=== PATIENT | female | born 1960 | race Hispanic/Latino ===

== ENCOUNTER → 2024-11-30 | Outpatient (CLI) | payer OTHER ==
[2024-11-30] MEDS: REGADENOSON 0.4 MG/5 ML PF SYG IVP ONE (11:44)
--- NOTE | 2024-12-03 15:25 | HMCSR ---
APPROVED REPORT Height: 5 ft 3in Weight: 256 lbs TEST INDICATIONS CAD The imaging protocol used to acquire images was Rest Tc-99m/stress Tc-99m 1 day Consent: The procedure was explained and understood by the patient. Informerd consent was witnessed Ligia Moser RN First, low dose rest was performed then high dose stress. RESTING DATA: The resting ekg shows: NSR, RBBB Rest SPECT myocardial perfusion imaging was performed in supine position 48 minutes following the int ravenous injection of 10.8 mCi of Tc-99 Sestamibi. Time of rest injection: 09:05: Date: 11/30/2024 Time of rest imagin:53: Date: 11/30/2024 PHARMACOLOGIC STRESS: Pharmacologic stress test was performed by injecting regadenoson 0.4 mg IV push followed by the intra venous injection of 34.9 mCi of Tc-99 Sestamibi. Time of stress injection: 10:30: Date: 11/30/2024 Time of stress imagin:52: Date: 11/30/2024 Heart Rate at time of stress injection: 80 bpm. Gated Stress SPECT was performed 82 minutes after stress injection. The images were gated to evaluate regional wall motion and calculate left ventricular ejection fracti on. STRESS DETAILS Reason for Termination: Infusion complete Stress Symptoms: Dyspnea Max HR Achieved: 100 bpm % of APMHR Achieved: 65 Max Blood Pressure: 153/61 mmHg Stress ECG: NSR, RBBB Study quality was fair. Lung uptake was Normal. Artifact: No artifact LEFT VENTRICLE The left ventricular ejection fraction was calculated to be >65%.TID = . LV PERFUSION Stress Perfusion Normal IMPRESSION Normal pharmacologic nuclear stress test. Conclusion Normal [id number] stress test with an LVEF >65%. No ischemia observed.
== END | disposition home or self-care (01) ==
LOC: SHCH 08:49 → EDUNIT# 08:50
PROVIDERS: ATTEND Student in an Organized Health Care Education/Training Program
DX: I25.10 Atherosclerotic heart disease of native coronary artery without angina pectoris (principal); I45.10 Unspecified right bundle-branch block
CPT/HCPCS: 78452; 93017; J2785; A9500 ×2

== ENCOUNTER 2025-01-15 05:44 | Day surgery (SDC) | payer OTHER ==
[2025-01-13 12:05] VITALS: BP 149/80; PULSE 100; RESP 18; TEMP 98.1
[2025-01-13 12:10] LABS: CREATININE 2.1 mg/dL (0.5-1.0); POTASSIUM 4.6 mmol/L (3.5-5.1)
[2025-01-13 12:12] LABS: INR 0.97 (0.85-1.15); PROTHROMBIN TIME 10.3 SEC (9.6-11.6)
[2025-01-13 12:13] LABS: PARTIAL THROMBOPLASTIN TIME 27.3 SEC (26.3-35.5)
[~2025-01-15] VITALS: Ht 160 cm; Wt 116.0 kg
[2025-01-15] VITALS (20 sets, daily range): BP systolic 127–158; BP diastolic 60–85; PULSE 85–101; RESP 13–19; TEMP 97–97.5
[2025-01-15] MEDS: BUPIvacaine/PF 0.5% 30ML VIAL ONE
[~2025-01-15 05:44] MED LIST: AMLO-257 PO; FOLI0.8T43 PO; LEVO125C5 PO; ROSU40TA88 PO; SODI650T PO
[2025-01-15] MEDS: 0.9%NACL 1000ML 1,000 ML IV ONE (06:35)
[2025-01-15] MEDS: ceFAZolin SODIUM 2 GM VIAL ONE (06:36)
[2025-01-15] MEDS ORDERED: LIDOCAINE PF 100MG/5ML (2%) SYRINGE 5ML ONE (07:00)
[2025-01-15] MEDS ORDERED: ondanSETRON 4MG INJ ONE (07:00)
[2025-01-15] MEDS ORDERED: dexaMETHasone SOD PHOSPHATE 10MG/ML 1ML VIAL ONE (07:01)
[2025-01-15] MEDS ORDERED: GLYCOPYRROLATE 0.2 MG/ML 5 ML VIAL ONE (07:01)
[2025-01-15] MEDS ORDERED: proPOFol 10 MG/ML 20ML VIAL IV ONE (07:01)
[2025-01-15] MEDS ORDERED: FENTanyl CITRate PF 50 MCG/1 ML 2ML VIAL ONE (07:02)
[2025-01-15] MEDS ORDERED: rocuRONium bROMide 10MG/1ML 5ML VL ONE (07:02)
[2025-01-15] MEDS ORDERED: NEOSTIGMINE METHYLSULFATE 1MG/ML IV ONE (07:02)
[2025-01-15] MEDS ORDERED: phenylEPHRINE HCL 10 MG/ML 1ML VIAL IV ONE (07:02)
[2025-01-15] MEDS ORDERED: MIDAZOLAM HCL 1 MG/ML 2ML VIAL ONE (07:02)
[2025-01-15] MEDS ORDERED: HYDR-4060 PO (07:47)
[2025-01-15] MEDS: HYDROcodone/APAP 5/325 1 TAB TABLET PO ONE (09:51)
--- NOTE | 2025-01-15 09:51 | HMCIMG ---
INTRAOPERATIVE FLUOROSCOPIC GUIDANCE UP TO 1 HOUR. IMPRESSION: Intraoperative fluoroscopic guidance was provided for ORIF right distal lateral femur biopsy/surgery, which was performed by Dr. Singh. Total fluoroscopy time was 4 seconds, and administered dose, 0.39 mGy. A total of 3 spot images obtained. Please refer to the orthopedic procedure note for further details.
[2025-01-15] MEDS: HYDROcodone/APAP 5/325 1 TAB TABLET ONE (09:53)
[2025-01-15] MEDS ORDERED: IpraTROPium/alBUTERol SULFATE 3 ML SOLUTION IH ONE (10:00)
--- NOTE | 2025-01-15 10:10 | NUR ---
DRESSING: BILLY WRAP DRESSING TO RIGHT LEG DRY/INTACT, ICE BAG APPLIED PER ORDERS.
--- NOTE | 2025-01-15 11:45 | NUR ---
DRESSING: BILLY BANDAGE TO RT LEG REMAINED DRY/INTACT WITH ICE BAG IN PLACE
--- NOTE | 2025-01-15 12:50 | OP ---
Operative Note: DATE OF PROCEDURE: 01/15/25 SURGEON: MARY CHRIS MD COAGULANT DIPPER: Juan Roberts ANESTHESIA: General ANESTHESIOLOGIST/AUTO HEATER MECHANIC: Greg Law PREOPERATIVE DIAGNOSIS: Right distal femur bone lesion POSTOPERATIVE DIAGNOSIS: Right distal femur bone lesion PROCEDURE: Biopsy of right distal femoral bone lesion ESTIMATED BLOOD LOSS: 10 cc INDICATIONS: 64-year-old female with right knee osteoarthritis who underwent imaging of the right knee. Incidentally seen were lesions within the right femur. She had an MRI of the entire right femur showing lesions throughout the bone with a large lesion in the distal region. After discussion of the risks, benefits, and alternatives, the patient voluntarily agreed to undergo the aforementioned procedure. DESCRIPTION OF PROCEDURE: Patient was properly identified in the preoperative holding area. Surgical site marking was verified and surgery consent reviewed. The patient was then taken to the operating room and placed in supine position on the OR table. After induction of general anesthesia, preoperative antibiotics were given, all bony prominences were well-padded, and a well padded tourniquet was applied but not inflated at this time. The right lower extremity was then prepped and draped in usual sterile fashion. Surgical timeout was done verifying correct surgery, side, site, and location to be performed. We then began the procedure by exsanguinating the leg using Esmarch and inflating our tourniquet to 300 mm Hg. We then localized to the lesion of the distal femoral under fluoroscopy and marked this region. A 10 blade was then used to make an proximally 6 cm long incision in the skin along the lateral aspect of the femur. Hemostasis was performed using Bovie electrocautery. We then dissected bluntly through the subcutaneous fat and placed our self- retaining retractors. We then incised the IT band in line with the skin incision and split the vastus lateralis muscle placing our Hohmann retractors deep to the bone. Having exposed the lateral cortex of the distal femur we then used a 2.0 mm K-wire to perforate the cortex in three different regions. We then used the quarter-inch osteotome to connect these three holes and excise the small piece cortex in this region. We then began to use a curette to obtain some of the bone matrix tissue and put this on our specimen cup. We ended up widening the osteotomy to allow for further tissue to be obtained as there was very little specimen. We then used a suction trap to aspirate from the bone marrow a sample to send for cytology. Once we had obtained adequate sample, we applied bone wax over the the. The IT band was closed using a #1 Vicryl. 2-0 Vicryl was used in the subcutaneous tissue. 0.5% Marcaine was injected as local in the perioperative tissues. A running subcuticular 3-0 Monocryl was placed for closure of the skin with Dermabond applied over this. Sterile soft dressing was applied. Aspirate and bone marrow were sent pathology. The tourniquet was then deflated. The patient was awakened from anesthesia and taken to the recovery room in stable condition. MARY CHRIS MD Jan 15, 2025 12:50
== END 2025-01-15 11:45 | disposition home or self-care (01) ==
LOC: DAH 05:44
PROVIDERS: ATTEND Student in an Organized Health Care Education/Training Program
DX: M89.9 Disorder of bone, unspecified (principal); M89.8X5 Other specified disorders of bone, thigh; M79.604 Pain in right leg; I10 Essential (primary) hypertension; E11.9 Type 2 diabetes mellitus without complications; E03.9 Hypothyroidism, unspecified; E78.5 Hyperlipidemia, unspecified; Z79.890 Hormone replacement therapy; Z82.3 Family history of stroke; Z79.899 Other long term (current) drug therapy; Z98.890 Other specified postprocedural states
CPT/HCPCS: 27355; 38220; 80048; 85610; 85730; 36415; 82948 ×2; 88184; 88185; 88189; 73552; 97161; 97116; 94640; A4663; A4606; C1713; J3010; J1100; J7030; J3490 ×2; J2003; J2250; J2704; J2405; J2710; J0665; J2371; J0690; A4649; A6255; A5120; A4215; A4223; A4222; A4221; A6450

== ENCOUNTER 2025-03-15 06:43 | Observation (INO) | payer OTHER ==
[2025-03-09 12:26] LABS: BASOPHILS # (AUTO) 0.01 K/uL (0.00-0.20); BASOPHILS % (AUTO) 0.1 % (0.0-5.0); EOSINOPHILS # (AUTO) 0.01 K/uL (0.00-0.70); EOSINOPHILS % (AUTO) 0.1 % (0.0-8.0); HEMATOCRIT 39.1 % (36-48); IMMATURE GRANULOCYTE ABSOLUTE 0.05 K/uL (0-1); LYMPHOCYTES # (AUTO) 2.5 K/uL (1.0-4.8); LYMPHOCYTES % (AUTO) 28.1 % (21.0-51.0); MEAN CORPUSCULAR HEMOGLOBIN 28.8 pg (27.0-33.0); MEAN CORPUSCULAR HGB CONC 31.2 g/dL (32.0-36.0); MEAN CORPUSCULAR VOLUME 92.4 fL (79-99); MONOCYTES # (AUTO) 0.7 K/uL (0.1-1.0); MONOCYTES % (AUTO) 8.4 % (3.0-13.0); NEUTROPHILS # (AUTO) 5.5 K/uL (1.8-7.7); NEUTROPHILS % (AUTO) 62.7 % (40.0-77.0); PLATELET COUNT (AUTO) 354 K/uL (130-400); RED BLOOD CELL COUNT(AUTO) 4.23 MIL/uL (4.00-5.50); RED CELL DISTRIBUTION WIDTH 13.5 % (11.0-15.5); WHITE BLOOD COUNT (AUTO) 8.8 K/uL (4.8-10.8)
[2025-03-09 12:36] LABS: INR 0.96 (0.85-1.15); PROTHROMBIN TIME 10.2 SEC (9.6-11.6)
[2025-03-09 12:38] LABS: PARTIAL THROMBOPLASTIN TIME 25.1 SEC (26.3-35.5)
--- NOTE | 2025-03-09 12:40 | NUR ---
PREOP MAC RT INSTRUCTED ON INCENTIVE SPIROMETRY.
[2025-03-09 12:49] LABS: ALBUMIN 4.1 g/dL (3.5-5.0); CREATININE 2.4 mg/dL (0.5-1.0)
[2025-03-09 13:01] VITALS: BP 185/80; PULSE 89; RESP 18; TEMP 98.6
[~2025-03-15] VITALS: Ht 160 cm; Wt 116.6 kg
[2025-03-15] VITALS (30 sets, daily range): BP systolic 101–154; BP diastolic 40–85; PULSE 61–110; RESP 13–21; TEMP 97.3–98.6; O2SAT 93–95
[~2025-03-15 06:43] MED LIST changes: +CETI10TA57 PO
[2025-03-15] MEDS ORDERED: LIDOCAINE PF 100MG/5ML (2%) SYRINGE 5ML ONE (07:14)
[2025-03-15] MEDS ORDERED: rocuRONium bROMide 10MG/1ML 5ML VL ONE (07:15)
[2025-03-15] MEDS ORDERED: GLYCOPYRROLATE 0.2 MG/ML 5 ML VIAL ONE (07:15)
[2025-03-15] MEDS ORDERED: proPOFol 10 MG/ML 20ML VIAL IV ONE (07:15)
[2025-03-15] MEDS ORDERED: SUCCINYLCHOLINE CHLORIDE 20 MG/ML 10 ML VIAL ONE (07:15)
[2025-03-15] MEDS ORDERED: ondanSETRON 4MG INJ ONE (07:15)
[2025-03-15] MEDS ORDERED: dexaMETHasone SOD PHOSPHATE 10MG/ML 1ML VIAL ONE (07:15)
[2025-03-15] MEDS ORDERED: NEOSTIGMINE METHYLSULFATE 1MG/ML IV ONE (07:15)
[2025-03-15] MEDS ORDERED: FENTanyl CITRate PF 50 MCG/1 ML 2ML VIAL ONE ×3 (07:16→09:43)
[2025-03-15] MEDS ORDERED: MIDAZOLAM HCL 1 MG/ML 2ML VIAL ONE (07:16)
[2025-03-15] MEDS ORDERED: ROPivacaine 0.5% 5MG/ML 30ML ONE (07:20)
[2025-03-15] MEDS ORDERED: LISI2.5T13 PO (07:48)
[2025-03-15] MEDS ORDERED: ketaMINE 50MG/ML SYRINGE 50 MG/ML DISP.SYRIN ONE (07:50)
[2025-03-15] MEDS ORDERED: ALBUMIN (HUMAN) 5% 250 ML IV ONE (07:50)
[2025-03-15] MEDS ORDERED: PoTASSium chloRIDE 20MEQ/100ML 100 ML IV PRN (08:00)
[2025-03-15] MEDS ORDERED: FERROUS FUMARATE 324 MG TABLET PO PRN (08:00)
[2025-03-15] MEDS ORDERED: HYDROcodone/APAP 5/325 1 TAB TABLET PO PRN (08:00)
[2025-03-15] MEDS ORDERED: DiphenhydrAMINE HCL 50 MG/ML VIAL IVP PRN (08:00)
[2025-03-15] MEDS ORDERED: PoTASSium chloRIDE 20MEQ ER 20 MEQ ERTAB PO PRN (08:00)
[2025-03-15] MEDS ORDERED: PoTASSium chl 10% ELIXIR 20MEQ 20 MEQ/15 ML UDCUP PO PRN (08:00)
[2025-03-15] MEDS ORDERED: ondanSETRON 4MG INJ IVP PRN (08:00)
[2025-03-15] MEDS ORDERED: CALCIUM CARB 500MG PO PRN (08:00)
[2025-03-15] MEDS: TRANEXAMIC ACID 1000MG/10ML ONE (08:15)
[2025-03-15] MEDS: ceFAZolin SODIUM 2 GM VIAL ONE (08:17)
--- NOTE | 2025-03-15 09:20 | DS ---
Discharge Summary Hospital Course Summary: The patient was admitted to the hospital postoperatively on 03/15/2025 after undergoing right total knee arthroplasty. They did well with routine postoperative pain control. They worked well with physical therapy. They developed some acute blood loss anemia but remained asymptomatic. The hospital course was otherwise uncomplicated. They were subsequently able to be discharged on postoperative day [] once discharge arrangements were made with home health physical therapy. Customer Field Representative(s): None Procedure(s): right total knee arthroplasty, 03/15/2025 Assessment/Plan: ASSESSMENT: Status post right total knee arthroplasty PLAN: See discharge instructions Discharge Instructions: Begin working with home health physical therapy. Dressing may be removed 03/17/2025 and left open to air. Showers ok allowing soap and water to run over the wound. Pat dry. Do not submerge wound in tub/pool. Do not apply ointments. Do not apply Betadine. Do not apply peroxide. Ice packs to decrease pain/swelling. Prescriptions have been sent to the pharmacy: *[place] 5/325mg 1-2 tab every 6 hours as needed for severe pain. (please call for refills) Cyclobenzaprine 5mg 1 tab every 8 hours as needed for muscle spasm pain. Gabapentin 100mg 1 tab every 8 hours (may discontinue if drowsy). Colace 100mg 1 tab orally twice a day as needed for constipation. Aspirin 325mg twice a day for 30 days to prevent blood clots. Call for a follow-up appointment in 2-3 weeks at [facility]. Home Medications: Reported Medications Lisinopril (Lisinopril) 2.5 Mg Tablet, 1 TAB PO DAILY for 30 Days, #30 TAB 0 Refills 03/15/25 Cetirizine HCl (Cetirizine HCl) 10 Mg Tablet, 10 MG PO DAILY, TAB 03/09/25 Rosuvastatin Calcium (Rosuvastatin Calcium) 40 Mg Tablet, 40 MG PO HS, TAB 01/13/25 Levothyroxine Sodium (Levothyroxine) 125 Mcg Capsule, 125 MCG PO AM, CAP 01/13/25 Folic Acid/Vit Bcomp,C (Renal-Giselle Tablet) 0.8 Mg Tablet, 0.8 MG PO HS, TAB 01/13/25 Sodium Bicarbonate (Sodium Bicarbonate) 650 Mg Tablet, 650 MG PO BID, TAB 01/13/25 Amlodipine Besylate (Amlodipine Besylate) 5 Mg Tablet, 5 MG PO AM, TAB 01/13/25 Discontinued Scripts Hydrocodone/Acetaminophen (Hydrocodon-Acetaminophen 5-325) 5 Mg-325 Mg Tablet, 1 EACH PO Q6HPRN PRN for post operative pain for 7 Days, #28 TAB 0 Refills Prov:MARY CHRIS MD 01/15/25 MARY CHRIS MD March 15, 2025 09:20
[2025-03-15] MEDS: ketOROlac 30MG VIAL (30MG/ML) ONE (10:12)
[2025-03-15] MEDS: ROPivacaine 0.5% 5MG/ML 30ML ONE (10:12)
[2025-03-15] MEDS: TRANEXAMIC ACID 1000MG/10ML IV ONE ×2 (10:46)
--- NOTE | 2025-03-15 10:53 | OP ---
Operative Note: DATE OF PROCEDURE: 03/15/25 PREOPERATIVE DIAGNOSIS: Right knee osteoarthritis. POSTOPERATIVE DIAGNOSIS: Right knee osteoarthritis. PROCEDURE PERFORMED: Right knee total knee arthroplasty. SURGEON: Mel Singh MD ICE BAG ASSEMBLER: Ania Rascon. ANESTHESIA: General with adductor canal block. ANESTHESIA: DIE SIZER Jordin Platt. ESTIMATED BLOOD LOSS: 50cc. COMPLICATIONS: None. DRAINS: None. SPECIMENS REMOVED: resected bone. Not sent to pathology. IMPLANTS: [employer] II BCS size 6 Oxinium femur, size 4 tibial base plate, 32 mm 7.5 patella, 9 mm polyethylene STATEMENT OF MEDICAL NECESSITY: The patient is a 64-year-old female who suffers from right knee osteoarthritis failing conservative management. After discussion of the risks, benefits, and alternatives with the patient, they voluntarily agreed to undergo the aforementioned procedure. DESCRIPTION OF PROCEDURE: Patient was properly identified in the preoperative holding area. Surgical site marking was verified and surgery consent reviewed. The patient was then taken to the operating room and placed in supine position on the OR table. After induction of general anesthesia, preoperative antibiotics were given, all bony prominences were well-padded, and a well padded tourniquet was applied but not inflated at this time. The right lower extremity was then prepped and draped in usual sterile fashion. Surgical time out was done verifying correct surgery, side, site, and location to be performed. We then began the procedure by exsanguinating the limb using an Esmarch and inflating the tourniquet to 350 mmHg. At this point, we made an anterior midline incision using a 10 blade, coming down sharply the level of the fascia. Skin flaps were elevated medially and laterally. We then obtained a clean 10 blade and performed a standard medial parapatellar arthrotomy. We excised the infrapatellar fat pad. We performed our soft tissue releases off of the tibia. We transected the ACL and removed the anterior portion of the medial & lateral meniscus. We then brought the knee into hyperflexion with the patella everted. We used our entry reamer to enter the femoral canal. We then placed our intramedullary cutting guide for our distal femoral cutting block. We then performed our distal femoral osteotomy ensuring appropriate rotation and removed the bony wafer. We then removed these pins and block and then used jig 2 to size the distal femur with the after mentioned size found. We then placed our 5-in-1 cutting block in 4 degrees of external rotation and took our 5 cuts ensuring to protect the patellar tendon and the collateral ligaments. We then removed the cutting block and our bony fragments using a curved osteotome. We then placed our PCL retractor subluxating the tibia anteriorly. Using an extra medullary tibial cutting guide, we hung the block for our proximal tibial cut taking 2 mm off the more diseased portion. Prior to pinning this block in place, we ensured appropriate varus/valgus alignment and posterior slope similar to the [place] slope of the patient's knee. We then performed our proximal tibial osteotomy and removed the bony wafer using Bovie electrocautery to release any remaining soft tissue attachments. We then used our tibial sizing paddle and checked once more for varus & valgus alignment and found this to be appropriate. At this point, we pinned our tibial paddle in place. We then removed the PCL retractor and subluxated the tibia posteriorly while we placed our femoral trial component. We then finished preparing the notch with the reamer and box chisel. The notch portion of the trial femoral component was then placed. A posterior stabilized polyethylene, size 9 trial was placed. The knee was then taken through range of motion and found to have stable full range of motion. We then placed a bump under the ankle and everted the patella to perform our freehand cut of the undersurface the patella. We then sized our patella and reamed to the lug holes for this. We placed our trial patellar component and begin to take the knee through range of motion. The patella had significant lateral tracking so we performed a lateral release. Rotation of the tibial and femoral components appeared correct. The patella continued to slow s ome lateral pull so we elected to use the 7.5 mm thickness. At this point we began removing our trial components and punched the tibial keel prior to removing our tibial trial component. Final components were opened and cement was mixed on the back table while we injected local cocktail in the posterior capsule. We then thoroughly irrigated out the bone and dried the bony surfaces. We cemented our tibial component in place ensuring to remove excess cement and placed our trial polyethylene. We then cemented our femoral component in place once again taking time to ensure excess cement was removed leg was brought into full extension to help squeeze the excess cement from around the femoral component. We then brought the knee back in a flexion to remove this portion of the cement at this point we placed the ankle in a bump thoroughly irrigated off the patellar component and cemented our patellar component in standard fashion again removing excess cement. While we waited for the cement to cure, we thoroughly irrigated out the wound with normal saline. Once our cement had cured, we took the knee through a range of motion and found full and stable range of motion. We then elected to use the size 9 polyethylene and removed our trial polyethylene. We impacted our final polyethylene component in place in standard fashion and took the knee through a range of motion check once more. This was satisfactory so we began to repair the arthrotomy using #1 Vicryl in interrupted [id number] fashion. Subcutaneous tissue was repaired using 2-0 Vicryl. Running subcuticular 3-0 Monocryl stitch with Dermabond placed over this for the skin. We then applied a foam barrier dressing and a pressure dressing consisting of 4 x 4's fluffs and an Nils wrap. The tourniquet was then deflated. Patient was awakened from anesthesia, and they were taken to the recovery room in stable condition. MEL SINGH MD March 15, 2025 10:53
[2025-03-15] MEDS: INSULIN humuLIN R 100 UNIT/ML 3ML SQ SCH (11:30)
[2025-03-15] MEDS: FENTanyl CITRate PF 50 MCG/1 ML 2ML VIAL ONE (11:38)
--- NOTE | 2025-03-15 11:46 | HMCIMG ---
Exam Type: KNEE/PATELLA 1-2VWS RT Clinical Information: S/P RT TKA SURGERY Comparison: None Findings: Routine views of the knee are without evidence of fracture, dislocation, arthritic, or inflammatory change. There is status post knee replacement with adequate visualization and alignment of bony and hardware elements. No complications are seen. There are vascular calcifications. The joint space is well maintained and there is no effusion. IMPRESSION: Status post knee replacement.
[2025-03-15] MEDS: IpraTROPium/alBUTERol SULFATE 3 ML SOLUTION IH ONE (12:02)
[2025-03-15] MEDS: 0.9%NACL 1000ML 1,000 ML IV ONE (13:00)
[2025-03-15] MEDS: FAMOTIDINE 20MG VIAL IV ONE (13:00)
[2025-03-15] MEDS: acetaMINOPHEN 100 ML ONE (13:00)
[2025-03-15] MEDS: GABApentin 100 MG CAPSULE PO SCH (13:01)
[2025-03-15] MEDS: polyETHYLene GLYCol 3350 17 GM POWD.PACK PO SCH (13:01)
[2025-03-15] MEDS: 0.9%NACL 1000ML 1,000 ML IV SCH (13:01)
[2025-03-15] MEDS: doCUSate SODIUM 100 MG CAP PO SCH (13:01)
[2025-03-15] MEDS: HYDROcodone/APAP 5/325 1 TAB TABLET PO PRN (13:38)
[2025-03-15] MEDS: ceFAZolin SODIUM 2 GM VIAL IVP SCH (13:39)
--- NOTE | 2025-03-15 14:30 | NUR ---
Order received and patient seen. Patient reports she did not use an AD prior to surgery however was limited in her activity. Plan is for DC home with spouse. Patient does not have a walker, will need one at DC. She denies and step to get into her home. PT team to follow. Addendum: 03/15/25 at 1520 by SUSHILA RICHARD PT Amended: Links added.
[2025-03-15] MEDS: CYCLOBENZAPRINE HCL 10 MG TABLET PO PRN (15:30)
--- NOTE | 2025-03-15 17:31 | NUR ---
ORTHO COORDINATOR: TEACHING REGARDING DVT AND PNEUMONIA PREVENTION, PAIN EXPECTATIONS AND PAIN MANAGEMENT. PATIENT IN BED, B SCD'S IN PLACE AND FUNCTIONING. INCENTIVE SPIROMETER ON BEDSIDE TABLE. PATIENT RETURN DEMONSTRATED USE OF INCENTIVE SPIROMETER AND FOOT FLEXION/EXTENSION EXERCISES. RATIONAL PROVIDED. PAIN MANAGEMENT DISCUSSED, REMINDED PATIENT PAIN MEDICATIONS MUST BE REQUESTED. ENCOURAGED HER TO SET AN ALARM FOR EVERY FOUR HOURS AND PERFORM A SELF ASSESSMENT. NUMERIC PAIN SCALE REVIEWED, PATIENT INSTRUCTED TO THEN REQUEST MEDICATION BASED ON PAIN SCORE. PATIENT VERBALIZED UNDERSTANDING TO INSTRUCTIONS. EXPECTATIONS SET FOR PATIENT TO SHOWER TOMORROW. PATIENT VERBALIZED UNDERSTANDING. NO ADDITIONAL QUESTIONS/CONCERNS AT THIS TIME.
[2025-03-15] MEDS: traMADol HCL 50 MG TABLET PO PRN (20:15)
[2025-03-15] MEDS: INSULIN humuLIN R 100 UNIT/ML 3ML SQ ONE (22:02)
[2025-03-16] VITALS (7 sets, daily range): BP systolic 93–136; BP diastolic 54–79; PULSE 67–104; RESP 18–20; TEMP 98–98.7; O2SAT 97
--- NOTE | 2025-03-16 02:27 | NUR ---
nurse note patient alert and oriented times 4. plan of care discussed with her and she verbalized understanding. patient calls for assistance to the restroom. She is drinking plenty of fluids and is saline locked now. She has slept about 5 hours tonight intermittently. She complains of knee discomfort only when walking. call light within reach, bed alarm on, 2 side rails up. will continue to monitor patient.
[2025-03-16] MEDS: HYDROcodone/APAP 5/325 1 TAB TABLET PO PRN (04:20)
[2025-03-16 04:33] LABS: HEMATOCRIT 31.4 % (36-48); MEAN CORPUSCULAR HEMOGLOBIN 28.8 pg (27.0-33.0); MEAN CORPUSCULAR HGB CONC 31.2 g/dL (32.0-36.0); MEAN CORPUSCULAR VOLUME 92.4 fL (79-99); RED BLOOD CELL COUNT(AUTO) 3.4 MIL/uL (4.00-5.50); RED CELL DISTRIBUTION WIDTH 13.2 % (11.0-15.5); WHITE BLOOD COUNT (AUTO) 15.6 K/uL (4.8-10.8)
[2025-03-16 04:55] LABS: CREATININE 2.9 mg/dL (0.5-1.0); POTASSIUM 4.9 mmol/L (3.5-5.1)
[2025-03-16] MEDS: levoTHYROxine 125 MCG TABLET PO SCH (05:55)
[2025-03-16] MEDS: levoTHYROxine 125 MCG TABLET ONE (05:55)
--- NOTE | 2025-03-16 08:10 | PN ---
Ortho postop day one. This morning patient is also already out of bed resting in a chair she is already wearing her street clothes. Reporting moderate pain. Vital signs have remained stable. She is afebrile. Laboratory results reviewed. Noted to have a drop in hemoglobin and hematocrit as expected after total knee arthroplasty. Patient is currently asymptomatic and we will continue to observe and address per protocol as necessary. The Nils bandage his already been removed from the operative site and the dressing is intact. She has ice currently present. She has been alternating extension and flexion with a footstool while seated. Gastrocnemius soft nontender. Negative Homans. Operative findings discussed with the patient. She is voiding but not had any bowel movement and is not passing gas yet. Reinforce incentive spirometry. She ambulated within the confines of her room about 10 ft and is pending further physical therapy this morning. Anticipated discharge goal for patient is home health/PT. Assessment: Status post right total knee arthroplasty. Acute postoperative blood loss anemia Plan: Continue with Dr. Singh TKA protocol and discharge planning Acute postoperative blood loss anemia addressed with the protocol as necessary Vitals/Labs Vital Signs Date Time Temp Pulse Resp B/P (MAP) Pulse Ox O2 Delivery O2 Flow Rate FiO2 03/16/25 07:15 98.1 67 20 93/54 97 Room Air 21 03/15/25 19:15 0 Laboratory Tests 03/16/25 04:14 Medications Current Medications Cefazolin Sodium 2 gm STK-MED ONCE .ROUTE Last administered on 03/15/25at 08:17; Start 03/15/25 at 07:14; Stop 03/15/25 at 07:14; Status DC Sodium Chloride 1,000 ml @ As Directed STK-MED ONCE IV; Start 03/15/25 at 07:14; Stop 03/15/25 at 07:14; Status DC Lidocaine HCl 100 mg STK-MED ONCE .ROUTE; Start 03/15/25 at 07:14; Stop 03/15/25 at 07:15; Status DC Succinylcholine Chloride 200 mg STK-MED ONCE .ROUTE; Start 03/15/25 at 07:15; Stop 03/15/25 at 07:15; Status DC Dexamethasone Sodium Phosphate 10 mg STK-MED ONCE .ROUTE; Start 03/15/25 at 07:15; Stop 03/15/25 at 07:15; Status DC Glycopyrrolate 1 mg STK-MED ONCE .ROUTE; Start 03/15/25 at 07:15; Stop 03/15/25 at 07:15; Status DC Propofol 200 mg STK-MED ONCE IV; Start 03/15/25 at 07:15; Stop 03/15/25 at 07:15; Status DC Neostigmine Methylsulfate 10 mg STK-MED ONCE IV; Start 03/15/25 at 07:15; Stop 03/15/25 at 07:15; Status DC Ondansetron HCl 4 mg STK-MED ONCE .ROUTE; Start 03/15/25 at 07:15; Stop 03/15/25 at 07:15; Status DC Rocuronium [place] 50 mg STK-MED ONCE .ROUTE; Start 03/15/25 at 07:15; Stop 03/15/25 at 07:15; Status DC Fentanyl Citrate 100 mcg STK-MED ONCE .ROUTE; Start 03/15/25 at 07:16; Stop 03/15/25 at 07:16; Status DC Midazolam HCl 2 mg STK-MED ONCE .ROUTE; Start 03/15/25 at 07:16; Stop 03/15/25 at 07:16; Status DC Ropivacaine 150 mg STK-MED ONCE .ROUTE; Start 03/15/25 at 07:20; Stop 03/15/25 at 07:20; Status DC Acetaminophen 100 ml @ As Directed STK-MED ONCE .ROUTE; Start 03/15/25 at 07:42; Stop 03/15/25 at 07:43; Status DC Famotidine 20 mg STK-MED ONCE IV; Start 03/15/25 at 07:43; Stop 03/15/25 at 07:43; Status DC Sodium Chloride 1,000 ml @ 100 mls/hr Q10H IV Last administered on 03/15/25at 13:40; Start 03/15/25 at 08:00; Stop 03/16/25 at 01:22; Status DC Polyethylene Glycol 17 gm DAILY PO; Start 03/15/25 at 09:00; Stop 04/14/25 at 08:59 Bisacodyl 10 mg DAILY PRN RC; Start 03/18/25 at 08:00; Stop 04/17/25 at 07:59 Ferrous Fumarate 324 mg DAILY PRN PO; Start 03/15/25 at 08:00; Stop 04/14/25 at 07:59 Ondansetron HCl 4 mg Q6H PRN IVP; Start 03/15/25 at 08:00; Stop 04/14/25 at 07:59 Calcium Carbonate 500 mg Q12H PRN PO; Start 03/15/25 at 08:00; Stop 04/14/25 at 07:59 Diphenhydramine HCl 25 mg Q6H PRN IVP; Start 03/15/25 at 08:00; Stop 04/14/25 at 07:59 Insulin Human Regular INSULIN SLIDING SCAL... ACHS SQ; Start 03/15/25 at 11:30; Stop 04/14/25 at 11:29 Cefazolin Sodium 2 gm Q8H IVP Last administered on 03/15/25at 20:16; Start 03/15/25 at 13:00; Stop 03/15/25 at 21:01; Status DC Cyclobenzaprine HCl 5 mg Q8H PRN PO Last administered on 03/15/25at 15:30; Start 03/15/25 at 08:00; Stop 04/14/25 at 07:59 Gabapentin 100 mg TID PO Last administered on 03/15/25at 20:15; Start 03/15/25 at 09:00; Stop 04/14/25 at 08:59 Aspirin 325 mg DAILY PO; Start 03/16/25 at 09:00; Stop 04/15/25 at 08:59 Docusate Sodium 100 mg BID PO Last administered on 03/15/25at 20:15; Start 03/15/25 at 09:00; Stop 04/14/25 at 08:59 Potassium Chloride 100 ml @ 100 mls/hr AD PRN IV; Start 03/15/25 at 08:00; Stop 04/14/25 at 07:59 Potassium Chloride 20 meq AD PRN PO; Start 03/15/25 at 08:00; Stop 04/14/25 at 07:59 Potassium Chloride 20 meq AD PRN PO; Start 03/15/25 at 08:00; Stop 04/14/25 at 07:59 Tramadol HCl 50 mg Q6H PRN PO Last administered on 03/15/25at 20:15; Start 03/15/25 at 08:00; Stop 03/20/25 at 07:59 Acetaminophen/ Hydrocodone Bitart Q4H PRN PO; Start 03/15/25 at 08:00; Stop 03/15/25 at 07:51; Status DC Ketamine HCl 50 mg STK-MED ONCE .ROUTE; Start 03/15/25 at 07:50; Stop 03/15/25 at 07:50; Status DC Albumin Human 250 ml @ As Directed STK-MED ONCE IV; Start 03/15/25 at 07:50; Stop 03/15/25 at 07:50; Status DC Acetaminophen/ Hydrocodone Bitart 1 tab Q4H PRN PO Last administered on 03/15/25at 13:38; Start 03/15/25 at 08:00; Stop 03/20/25 at 07:59 Acetaminophen/ Hydrocodone Bitart 2 tab Q4H PRN PO Last administered on 03/16/25at 04:20; Start 03/15/25 at 08:00; Stop 03/20/25 at 07:59 Tranexamic Acid 1,000 mg STK-MED ONCE .ROUTE Last administered on 03/15/25at 08:15; Start 03/15/25 at 08:32; Stop 03/15/25 at 08:32; Status DC Ketorolac Tromethamine 30 mg STK-MED ONCE .ROUTE Last administered on 03/15/25at 10:12; Start 03/15/25 at 08:32; Stop 03/15/25 at 08:32; Status DC Ropivacaine 150 mg STK-MED ONCE .ROUTE Last administered on 03/15/25at 10:12; Start 03/15/25 at 08:32; Stop 03/15/25 at 08:32; Status DC Fentanyl Citrate 100 mcg STK-MED ONCE .ROUTE; Start 03/15/25 at 09:38; Stop 03/15/25 at 09:38; Status DC Fentanyl Citrate 100 mcg STK-MED ONCE .ROUTE; Start 03/15/25 at 09:43; Stop 03/15/25 at 09:44; Status DC Tranexamic Acid 1,000 mg STK-MED ONCE IV; Start 03/15/25 at 00:00; Stop 03/15/25 at 00:01; Status Cancel Tranexamic Acid 1,000 mg STK-MED ONCE IV Last administered on 03/15/25at 10:46; Start 03/15/25 at 10:46; Stop 03/15/25 at 10:51; Status DC Fentanyl Citrate 100 mcg STK-MED ONCE .ROUTE Last administered on 03/15/25at 11:38; Start 03/15/25 at 11:35; Stop 03/15/25 at 11:36; Status DC Albuterol 1 UDVIAL ONCE ONCE IH Last administered on 03/15/25at 12:02; Start 03/15/25 at 12:00; Stop 03/15/25 at 12:01; Status DC Insulin Human Regular 14 unit ONCE ONCE SQ; Start 03/15/25 at 22:00; Stop 03/15/25 at 22:01; Status DC Amlodipine Besylate 5 mg AM PO; Start 03/16/25 at 09:00; Stop 04/15/25 at 08:59 Lisinopril 2.5 mg DAILY PO; Start 03/16/25 at 09:00; Stop 04/15/25 at 08:59 Sodium Bicarbonate 650 mg BID PO; Start 03/16/25 at 09:00; Stop 04/15/25 at 08:59 Cetirizine HCl 10 mg DAILY PO; Start 03/16/25 at 09:00; Stop 04/15/25 at 08:59 Vitamin B Complex/ Vit C/Folic Acid 1 cap HS PO; Start 03/16/25 at 21:00; Stop 04/15/25 at 20:59 Levothyroxine Sodium 125 mcg SYN PO Last administered on 03/16/25at 05:55; Start 03/16/25 at 06:30; Stop 04/15/25 at 06:29 Atorvastatin Calcium 80 mg HS PO; Start 03/16/25 at 21:00; Stop 04/15/25 at 20:59 Levothyroxine Sodium 125 mcg STK-MED ONCE .ROUTE; Start 03/16/25 at 05:25; Stop 03/16/25 at 05:26; Status DC ERICA SINGH NP March 16, 2025 08:10
[2025-03-16] MEDS: ceTIRIzine HCL 5 MG TABLET PO SCH (08:45)
[2025-03-16] MEDS: ASPIRIN 325MG EC TAB PO SCH (08:45)
[2025-03-16] MEDS: LISINOPRIL 2.5 MG TABLET PO SCH (08:46)
[2025-03-16] MEDS: amLODIPine 5 MG TAB PO SCH (08:46)
[2025-03-16] MEDS: SODIUM BICARBONATE 650 MG TAB PO SCH (08:46)
--- NOTE | 2025-03-16 17:25 | NUR ---
DC PLAN VISITED WITH PATIENT. PATIENT LIVES WITH SPOUSE. INDEPENDENT ABLE TO PERFORM ADLS. PATIENT HAS NO SERVICES OR DMES. FEELS SAFE TO RETURN HOME. ISAIAH SIGNED FOR ANY IN NETWORK DME AND FOR [facility] AND [facility]. Addendum: 03/16/25 at 1728 by DOLLY ANNA RN CM Amended: Links added.
--- NOTE | 2025-03-16 17:28 | NUR ---
DC PLAN REFERRAL SENT TO [facility] AND TO [facility]. Addendum: 03/16/25 at 1729 by DOLLY ANNA RN CM Amended: Links added.
--- NOTE | 2025-03-16 17:33 | NUR ---
DC PLAN [facility] [phone] PACKET MADE AND SENT. [facility] [phone] ACCEPTED PATIENT. [facility] ACCEPTED PATIENT ONLY 10.42 COPAY. LILA LET NURSE, MD AND PATIENT KNOW OF ACCEPTANCE. PER NURSE PATIENT STILL HAVING A LOT OF PAIN MIGHT NOT DC TODAY. SPOKE TO PATIENT LET THEM KNOW ABOUT [facility] FOR DME AND GAVE MAP WITH ADDRESS AND PHONE TO [facility]. SAID CAN HAVE SPOUSE [employer] DME. Addendum: 03/16/25 at 1738 by DOLLY ANNA RN CM Amended: Links added.
[2025-03-16] MEDS: Vitamin B Complex/Vit C/Folic Acid PO SCH (20:49)
[2025-03-16] MEDS: atorVAStatin 40 MG TABLET PO SCH (20:49)
[2025-03-17 03:54] VITALS: BP 134/73; PULSE 101; RESP 19; TEMP 98.6
[2025-03-17 08:00] VITALS: BP 97/57; PULSE 111; RESP 18; TEMP 98.6
[2025-03-17 12:00] VITALS: BP 90/49; PULSE 104; RESP 18; TEMP 98.1
[2025-03-17] MEDS: LACTULOSE 20 GM/30 ML UDCUP PO ONE (12:47)
[2025-03-17] MEDS ORDERED: ASPI-891 PO (14:42)
[2025-03-17] MEDS ORDERED: GABA100C PO (14:42)
[2025-03-17] MEDS ORDERED: DOCU-116 PO (14:42)
[2025-03-17] MEDS ORDERED: CYCL-309 PO (14:42)
[2025-03-17] MEDS ORDERED: HYDR-4060 PO (14:42)
--- NOTE | 2025-03-17 15:45 | NUR ---
ORTHO COORDINATOR: REINFORCED TEACHING. PATIENT UP TO CHAIR DRESSED IN STREET CLOTHES. ENCOURAGED PATIENT TO CONTINUE WITH INCENTIVE SPIROMETER AND FOOT FLEXION/EXTENSION EXERCISES ONCE DISCHARGED. REVIEWED PROCESS FOR HOME HEALTH FIRST VISIT. PATIENT ENCOURAGED TO PREMEDICATE PRIOR TO PHYSICAL THERAPY AND PERIODS OF HIGH ACTIVITY. PATIENT VERBALIZED UNDERSTANDING. NO ADDITIONAL QUESTIONS/CONCERNS AT THIS TIME.
[2025-03-17 16:00] VITALS: BP 118/74; PULSE 105; RESP 18; TEMP 98.9
[2025-03-18] MEDS ORDERED: BisaCODYL 10 MG SUPP.RECT RC PRN (08:00)
== END 2025-03-17 17:30 | disposition home or self-care (01) ==
LOC: DAH 06:43 → DAHIP 06:44 → 4CH 12:30
PROVIDERS: ADMIT Student in an Organized Health Care Education/Training Program; ATTEND Student in an Organized Health Care Education/Training Program
DX: M17.11 Unilateral primary osteoarthritis, right knee (principal); D62 Acute posthemorrhagic anemia; G89.18 Other acute postprocedural pain; M89.8X5 Other specified disorders of bone, thigh; E11.9 Type 2 diabetes mellitus without complications; E03.9 Hypothyroidism, unspecified; I10 Essential (primary) hypertension; E78.5 Hyperlipidemia, unspecified; Z79.899 Other long term (current) drug therapy
CPT/HCPCS: 82040; 80048 ×2; 85025; 85610; 85730; 84134; 86140; 36415 ×2; 87641; 96365; 96366; 64447; 27447; 82948 ×9; 73560; 97161; 97116 ×6; 97530 ×11; 94640; 85027; G0378 ×50; A4600; A4223 ×2; A4663; J7030 ×2; P9045; J3490 ×6; J3010 ×4; J1100; J0330; J2003; J2250; J2704; J2405; J1885; J2710; J2795 ×2; J0690 ×3; C1713 ×2; C1776 ×2; A4649; A6255; A5120; A4215; A4213; A4222; A4221; A4216